=== PATIENT | male | born 1980 | race Caucasian/White ===

== ENCOUNTER 2016-10-11 10:24 | Emergency (ER) | payer OTHER ==
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
[~2016-10-11 10:24] MED LIST: AMITRYPTYLINE PO; AMOXICILLIN500 M1 PO; BACLOFEN10 MG; CLARITIN10 MG PO; FLEXERIL PO; NAPROXEN PO; NEURONTIN; PEN-VEE K PO; PREDNISONE PO; SUBOXONE 12 MG1 EACH; VICODIN 5/500 T1 TAB PO; ZANTAC300 MG PO
== END 2016-10-11 10:56 | disposition home or self-care (01) ==
LOC: SED 10:24
DX: M25.561 Pain in right knee (principal); M25.562 Pain in left knee; F17.210 Nicotine dependence, cigarettes, uncomplicated; Z98.890 Other specified postprocedural states
CPT/HCPCS: 29530; 73562; 96372; 99284; J1885

== ENCOUNTER 2016-11-01 02:51 | Emergency (ER) | payer OTHER | END 2016-11-01 04:27 | disposition home or self-care (01) | LOC: SED 02:51 | DX: M13.862 Other specified arthritis, left knee (principal); F17.200 Nicotine dependence, unspecified, uncomplicated; Z88.5 Allergy status to narcotic agent; Z79.899 Other long term (current) drug therapy | CPT/HCPCS: 29530; 29540; 99283 ==